=== PATIENT | female | born 1980 | race Caucasian/White ===

== ENCOUNTER 2019-04-23 04:06 | Emergency (ER) | payer OTHER ==
[~2019-04-23] VITALS: Ht 157.5 cm; Wt 108.9 kg
[2019-04-23 04:09] VITALS: Ht 157.5 cm; Wt 108.9 kg
[2019-04-23 06:44] VITALS: BP 121/72
== END 2019-04-23 06:44 | disposition home or self-care (01) ==
LOC: ED 04:06
DX: F41.9 Anxiety disorder, unspecified (principal); Z88.1 Allergy status to other antibiotic agents; Z88.2 Allergy status to sulfonamides
CPT/HCPCS: Q0092